=== PATIENT | female | born 1995 | race Caucasian/White ===

== ENCOUNTER 2020-08-01 10:43 | Outpatient (CLI) | payer OTHER ==
[~2020-08-01] VITALS: Ht 167.6 cm; Wt 100.0 kg
[2020-08-01 10:55] VITALS: BP 124/68
[2020-08-01] MEDS ORDERED: ACET325C5 PO (11:42)
[2020-08-01] MEDS ORDERED: ZOFR4TAB16 PO (11:42)
[2020-08-01] MEDS ORDERED: MAGN400C PO (11:42)
[2020-08-01 13:00] VITALS: BP 117/57
[2020-08-01 14:51] VITALS: BP 107/59
[2020-08-01 15:30] VITALS: BP 114/56
== END 2020-08-01 15:30 | disposition home or self-care (01) ==
LOC: M INFU 10:43
DX: O99.013 Anemia complicating pregnancy, third trimester (principal); Z3A.28 28 weeks gestation of pregnancy
CPT/HCPCS: 96365; 96366; J1756

== ENCOUNTER 2020-08-08 10:50 | Outpatient (CLI) | payer OTHER ==
[~2020-08-08] VITALS: Ht 167.6 cm; Wt 100.0 kg
[~2020-08-08 10:50] MED LIST: ACET325C5 PO; MAGN400C PO; ZOFR4TAB16 PO
[2020-08-08 11:00] VITALS: BP 120/64
[2020-08-08 12:10] VITALS: BP 121/57
[2020-08-08 12:40] VITALS: BP 105/51
== END 2020-08-08 13:00 | disposition home or self-care (01) ==
LOC: M INFU 10:50
DX: O99.019 Anemia complicating pregnancy, unspecified trimester (principal); Z3A.28 28 weeks gestation of pregnancy
CPT/HCPCS: 96365; 96366; J1756

== ENCOUNTER 2020-08-15 09:57 | Outpatient (CLI) | payer OTHER ==
[~2020-08-15] VITALS: Ht 167.6 cm; Wt 100.0 kg
[2020-08-15 10:14] VITALS: BP 109/57
[2020-08-15 11:30] VITALS: BP 109/61
[2020-08-15 12:27] VITALS: BP 101/58
== END 2020-08-15 12:00 | disposition home or self-care (01) ==
LOC: M INFU 09:57 → EDUNIT# 10:00 → M INFU 12:00
DX: O99.012 Anemia complicating pregnancy, second trimester (principal); Z3A.28 28 weeks gestation of pregnancy
CPT/HCPCS: 96365; J1756

== ENCOUNTER 2020-08-16 19:56 | Outpatient (CLI) | payer OTHER ==
[~2020-08-16] VITALS: Ht 167.6 cm; Wt 102.1 kg
[2020-08-16 20:10] VITALS: BP 108/50
[2020-08-16 20:50] VITALS: BP 131/79
--- NOTE | 2020-08-16 21:21 | IPNPDOC ---
Obstetrical Progress Note Date of Service Aug 16, 2020 Subjective 24yo at 31+3 presents for decreased FM. She said she last felt her baby move yesterday. She denied n/v/d, cp, sob, clark, visual changes, abd pain, f/c, vb, lof, contractions. Objective Vital Signs Date Time Temp Pulse Resp B/P (MAP) Pulse Ox O2 Delivery O2 Flow Rate FiO2 08/16/20 20:10 97.6 134 108/50 (69) Assessment Heart Rate (FHR): 135 Variability: Moderate Accelerations: Positive Decelerations: None Heart Rate Tracing: Category I Tocometer Contractions: Yes Frequency: regular Sterile Vaginal Examination Dilation: None Station: -3 Cervical Consistency: Firm Cervical Position: Posterior Postion/Presentation: Breech presentation Assessment and Plan Additional Comments 24yo at 31+3 with A1GDM presents for decreased FM. CAT I tracing, reactive. VS normal (tachy but had just walked in, repeat HR normal). Regular contractions on monitor, pt reported initially she could not feel them, but after 2h reported painful contractions. She has drank 2 bottles of water today, reports she normally drinks 5. She was encouraged to hydrate in triage but did not drink any water in triage, UA had +1 ketones. SVE C/T/H and unchanged on 2h and 4h repeat exam. UA/GC negative. TAUS with baby in breech position and polyhydraminos noted with GRAHAM 29.8. Suspect contractions are due to poly and dehydration but are not changing cervix so PTL is unlikley at this time. - set patient up for APFT starting at 32wk - she has GS scheduled already, will proceed with GS q4wk - plan for delivery at 39+0 to 39+6 (which is indicated anyways for her RCD) - encouraged hydration - strict routine OB and PTL return precautions - patient to follow up at next RASHEL Shea DO Aug 16, 2020 21:21
[2020-08-16 21:42] LABS: APPEARANCE, URINE CLOUDY (CLEAR); BACTERIA, URINE AUTO 1+ (NEGATIVE); BILIRUBIN, URINE AUTO NEGATIVE (NEGATIVE); BLOOD, URINE BLOOD NEGATIVE (NEGATIVE); COLOR, URINE YELLOW (YELLOW); GLUCOSE, URINE (UA) AUTO NEGATIVE (NEGATIVE); KETONE, URINE AUTO 1+ mg/dL (NEGATIVE); LEUKOCYTE ESTERASE, URINE AUTO 1+ (NEGATIVE); MUCUS, URINE SMALL (NEGATIVE); NITRITE, URINE AUTO NEGATIVE (NEGATIVE); PROTEIN, URINE AUTO 1+ mg/dL (NEGATIVE); RBC, URINE AUTO 2 /HPF (0-3); SPECIFIC GRAVITY URINE AUTO 1.018 (1.002-1.035); SQUAMOUS EPITHELIAL CELL UR AU 11 /HPF (0-6); WBC, URINE AUTO 8 /HPF (0-3)
[2020-08-16 23:32] LABS: CHLAMYDIA DNA AMPLIFICATION NEGATIVE (NEGATIVE); GC DNA AMPLIFICATION NEGATIVE (NEGATIVE)
[2020-08-17 01:03] VITALS: BP 121/69
[2020-08-18] MEDS ORDERED: PRENTAB9 PO (13:47)
== END 2020-08-17 01:10 | disposition home or self-care (01) ==
LOC: M LDO 19:56
PROVIDERS: ATTEND Obstetrics & Gynecology
DX: O36.8130 Decreased fetal movements, third trimester, not applicable or unspecified (principal); Z3A.31 31 weeks gestation of pregnancy
CPT/HCPCS: 59025; 81001; 87086; 87661; G0378; G0463

== ENCOUNTER 2020-08-18 13:18 | Outpatient (CLI) | payer OTHER ==
[~2020-08-18] VITALS: Ht 167.6 cm; Wt 101.2 kg
[2020-08-18 13:43] VITALS: BP 128/68
[2020-08-18] MEDS ORDERED: PRENTAB9 PO (13:47)
--- NOTE | 2020-08-18 18:12 | IPNPDOC ---
Text Note Date of Service The patient was seen on 08/18/20. NOTE 24yo at 31+5wks presenting for c/o ctx's. Denies LOF, DFM, or VB. She reports having ctx's for several days now and was evaluated in L&D 2 days prior for similar complaint. She has tried warm bath and drinking a gatorade. Vitals: normotensive, afebrile NST: appropriate for gestational age Jackpot: irregular ctx's. PE: GEN: well-appearing, resting comfortably in NAD HEENT: NC/AT airway patent and self-maintained CV: well-perfused RESP: no exaggerated respiratory effort appreciated ABD: soft, gravid S>D, nontender : NEFG, no VB, no pooling, no abnml vaginal discharge, SVE closed/thick/high Ext: no edema A/P: 24yo at 31+5wks presenting for c/o ctx's. Patient not in labor. Upon questioning, patient admitted to only drinking 2-3 bottles of water daily. Patient counseled on most likely etiology of ctx's being lack of hydration. Discussed importance of hydration with recommendation to drink 80-100oz daily. Counseled on FKCs, labor precautions Patient to f/u in 2 days for growth scan and in 3 days for COB appt in clinic All questions answered. VS,Fishbone, I+O VS, Fishbone, I+O Vital Signs Date Time Temp Pulse Resp B/P (MAP) Pulse Ox O2 Delivery O2 Flow Rate FiO2 08/18/20 13:43 97.4 115 20 128/68 (88) EARL LEPE DO Aug 18, 2020 18:12
== END 2020-08-18 18:10 | disposition home or self-care (01) ==
LOC: M LDO 13:18 → EEVIPCON 13:18 → M LDO 18:10
DX: O26.893 Other specified pregnancy related conditions, third trimester (principal); Z3A.31 31 weeks gestation of pregnancy
CPT/HCPCS: 59025; G0378; G0463

== ENCOUNTER 2020-10-08 05:07 | Inpatient (IN) | payer OTHER ==
[~2020-10-08] VITALS: Ht 167.6 cm; Wt 103.1 kg
[~2020-10-08 05:07] MED LIST changes: +CYCL-707 PO; +PRENTAB9 PO
[2020-10-08 05:49] LABS: HEMATOCRIT 35.7 % (36.0-47.0); HEMOGLOBIN 11.5 g/dl (12.0-15.5); MEAN CORPUSCULAR HEMOGLOBIN 26.5 pg (27.0-33.0); MEAN CORPUSCULAR HGB CONC 32.2 g/dl (32.0-36.5); MEAN CORPUSCULAR VOLUME 82.3 fl (80.0-96.0); PLATELET COUNT, AUTOMATED 333 10^3/uL (150-450); RED BLOOD COUNT 4.34 10^6/uL (4.00-5.40); WHITE BLOOD COUNT 11.6 10^3/uL (4.0-10.0)
[2020-10-08] MEDS ORDERED: MORPHINE PRES-FREE INJ 10 MG/10 ML VIAL (J2274) As Ordered ONE (06:58)
[2020-10-08] MEDS ORDERED: KETOROLAC 60MG 2ML VIAL As Ordered ONE (06:59)
[2020-10-08] MEDS ORDERED: ONDANSETRON 4MG/2ML VIAL As Ordered ONE ×2 (06:59→10:39)
[2020-10-08] MEDS ORDERED: dexameTHASONE 4 MG/ML 1ML VIAL (J1100 PER 1MG) As Ordered ONE (06:59)
[2020-10-08] MEDS ORDERED: OXYTOCIN INJ 10 UNITS/ML VIAL (J2590) As Ordered ONE (06:59)
[2020-10-08] MEDS ORDERED: OXYTOCIN 30 UNITS IN 0.9% NaCl 500ML IV BAG (J2590) As Ordered ONE (07:00)
[2020-10-08] MEDS ORDERED: ePHEDrine SULFATE 25 MG/5 ML(5MG/ML) SYRINGE As Ordered ONE (07:03)
[2020-10-08] MEDS ORDERED: PHENYLephrine 500MCG 5ML (100MCG/ML) SYRINGE As Ordered ONE (07:03)
[2020-10-08] MEDS ORDERED: METOCLOPRAMIDE INJ 10MG/2ML VIAL (J2765 PER 1) As Ordered ONE (07:16)
[2020-10-08] MEDS ORDERED: diphenhydrAMINE 50MG/ML VIAL (J1200) IV PRN (07:53)
[2020-10-08] MEDS ORDERED: NALBUPHINE HCL 10 MG/ML AMP (J2300) IV PRN ×2 (07:53→09:45)
[2020-10-08] MEDS ORDERED: ONDANSETRON 4MG/2ML VIAL IV PRN ×2 (07:53→09:45)
[2020-10-08] MEDS ORDERED: NALOXONE INJ 0.4MG/1ML VIAL (J2310 PER 1MG) IV PRN ×2 (07:53)
[2020-10-08] MEDS ORDERED: METOCLOPRAMIDE INJ 10MG/2ML VIAL (J2765 PER 1) IV PRN (07:53)
[2020-10-08] MEDS ORDERED: fentaNYL 100 MCG/2 ML INJECTION (J3010) As Ordered ONE ×2 (08:35→09:49)
[2020-10-08] MEDS ORDERED: propofoL 200 MG/20 ML VIAL As Ordered ONE (08:38)
[2020-10-08] MEDS ORDERED: ACETAMINOPHEN 1000MG 100ML IV BTL (OFIRMEV) (J0131 PER 10MG) As Ordered ONE (08:41)
[2020-10-08] MEDS ORDERED: MEPERIDINE INJ 25 MG/ML VIAL (J2175) IV PRN (09:45)
[2020-10-08] MEDS ORDERED: HYDROMORPHONE HCL 0.5 MG/ 0.5 ML SYRINGE (J1170 PER 1) IV PRN (09:45)
[2020-10-08] MEDS ORDERED: oxyCODONE 5MG TAB PO PRN (09:45)
[2020-10-08] MEDS: fentaNYL 100 MCG/2 ML INJECTION (J3010) IV PRN ×4 (09:55→10:45)
[2020-10-08 11:00] VITALS: BP 134/70
[2020-10-08 11:30] VITALS: BP 122/67
[2020-10-08 12:30] VITALS: BP 123/66
[2020-10-08 13:30] VITALS: BP 121/75
[2020-10-08 18:00] VITALS: BP 107/58
[2020-10-08 22:00] VITALS: BP 120/68
[2020-10-09 02:00] VITALS: BP 128/71
[2020-10-09 06:00] VITALS: BP 113/68
--- NOTE | 2020-10-09 06:20 | ROOPDOC ---
[facility] Report Of Operation Report of Operation DATE OF PROCEDURE: 10/08/20 PREPROCEDURE DIAGNOSES: 1. History of previous section 2. 39 weeks gestation 3. Gestational Diabetes A1 4. Obesity complicating 5. Undesired fertility POSTPROCEDURE DIAGNOSES: 1. History of previous section 2. 39 weeks gestation 3. Gestational Diabetes A1 4. Obesity complicating 5. Undesired fertility 6. Adhesions PROCEDURE: 1. Elective repeat low transverse section 2. [place] bilateral tubal ligation 3. Adhesiolysis SURGEON: Kusum Ferreira DO ASSISTANT MANAGER AIRSIDE OPERATIONS: Alivia Murillo CNM ANESTHESIA: Spinal ESTIMATED BLOOD LOSS: Approximately 700 mL. FLUIDS: 2000ml LR URINE OUTPUT: 100ml COMPLICATIONS: None FINDINGS: male in cephalic presentation with APGARS 9/9 weighing 3280g. Clear fluid on amniotomy. Normal-appearing uterus, bilateral ovaries and fallopian tubes. A large uterine window was identified extending behind the bladder. Dense adhesions of the fascia to the rectus muscle and peritoneum. PROCEDURE NOTE: The risks, benefits, indications and alternatives of the procedure were reviewed with the patient and informed consent was obtained. The patient was taken to the operating room where spinal anesthesia was obtained without difficulty and found to be adequate. She was then prepped and draped in the normal, sterile fashion in the dorsal supine position with a leftward tilt. A Pfannenstiel skin incision was then made with the scalpel and carried through to the underlying layer of fascia with the Bovie. The fascia was incised in the midline and the incision extended laterally with the Clifford scissors. The superior aspect of the fascial incision was grasped with the Lara clamps, elevated, and the underlying rectus muscles dissected off with the Bovie. Extensive adhesive disease of the fascia was encountered requiring extensive careful dissection with the Bovie and Metzenbaum scissors. Attention was then turned to the inferior aspect of this incision, which, in a similar fashion, was grasped, tented up with the Lara clamps and the rectus muscle dissected off aided with clifford scissors. Rectus muscles were then at the midline; the peritoneum identified, tented up using two Maddie clamps, and entered sharply with Metzenbaum scissors. The peritoneal incision was then extended with good visualization of the bladder. The Mobius self-retaining retractor was then inserted. The vesicouterine peritoneum was then identified, grasped with the pick-ups and entered sharply with the Metzenbaum scissors. This incision was then extended laterally and the bladder flap created digitally. A large uterine window was appreciated behind the bladder, due to this window behind the bladder, decision made to place hysterotomy superior to the bladder reflection above the window. Next, the lower uterine segment was incised in a transverse fashion with the scalpel. The uterine incision was then extended manually. The amniotic sac was artificially ruptured, productive of clear fluid. was found to be in cephalic presentation. The infants head delivered atraumatically in the ROT position through the hysterotomy without difficultly. The infant was dried on the surgical field with vigorous spontaneous cry and the cord doubly clamped and cut. The was handed off to the waiting pediatricians. A Cord blood sample was obtained. The placenta was then removed spontaneously with gently traction on the umbilical cord. The uterus was cleared of all clots and debris. The uterine incision was repaired with 0-monocryl in a running, locked fashion. A second layer of 0-monocryl was then used to embricate the hysterotomy in a horizontal fashion to achieve hemostasis. A bilateral tubal ligation was then performed per the patients request. The fallopian tubes were followed out to their fimbriated end on both sides. The left fallopian tube was grasped with a [place] clamp and the mesosalpinx incised parallel to the fallopian tube in an avascular plane using Bovie cautery. Two free ties of plain catgut were passed through the defect and placed around the fallopian tube in its proximal and distal segment and tied. The tubal segment between the two sutures was then excised using Metzenbaum scissors. Approximately 3 cm of tube was excised and sent to pathology. Excellent hemostasis and telescoping of the tubal lumen was noted. In an identical fashion, the patients right fallopian tube was then grasped with a [place] clamp. An identical procedure was then performed on this fallopian tube with a 3 cm segment excised and sent to pathology. Excellent hemostasis was noted and the tubes were returned to the abdomen. Reinspection of the hysterotomy was notable for hemostasis. The Mobius self-retaining retractor was removed from the abdomen. The fascia was reapproximated with 0-vicryl in a running fashion. The subcutaneous layer was closed with 3-0 vicryl in a interrupted fashion. The previous skin keloid scar was removed using the scalpel and Bovie. Several dermal sutures were placed for better reapproximation of the skin. The skin was then closed with 4-0 monocryl in a subcuticular fashion. The incision was then dressed with steri-strips and a pressure dressing applied. At the completion of the case, bimanual exam performed with good uterine tone and minimal vaginal bleeding. The patient tolerated the procedure well. Sponge, lap and needle counts were correct times three. The patient was taken to the recovery room in stable condition. KUSUM FERREIRA DO Oct 09, 2020 06:20
--- NOTE | 2020-10-09 06:23 | IPNPDOC ---
Progress Note Date of Service: Oct 09, 2020 Day#: 1 Progress Note SUBJECT: Ronda is a G4 now P3013 s/p ERLTCS with BTL, doing well day # 1. She has been ambulating, voiding spontaneously without issue and tolerating regular diet. Breast feeding without issue. Reports lochia is decreasing. Reports pain controlled on pain medications. OBJECTIVE: VITAL SIGNS: Within normal limits, afebrile. Alert and oriented times three. Abdomen: Fundus firm at U-2. Soft, NTTP. Incision: dressing in place c/d/i ASSESSMENT:Ronda is a G4 now P3013 s/p ERLTCS with BTL, doing well day # 1. Vitals within normal limits, afebrile, hemodynamically stable with no evidence of infection. PLAN: 1. Discharge to home tomorrow 2. Percocet and Motrin for pain. 3. Encourage breast feeding, regular diet, and ambulation. 4. Patient to remove dressing later today and may shower VS, I&O, 24H, Fishbone Vital Signs/I&O Vital Signs Date Time Temp Pulse Resp B/P (MAP) Pulse Ox O2 Delivery O2 Flow Rate FiO2 10/09/20 02:00 97.9 78 16 128/71 (90) 97 Room Air I&O- Last 24 Hours up to 6 AM 10/09/20 06:00 Intake Total 800 ml Output Total 2410 ml Balance -1610 ml EARL LEPE DO Oct 09, 2020 06:23
[2020-10-09 08:09] LABS: HEMATOCRIT 29.8 % (36.0-47.0); MEAN CORPUSCULAR HEMOGLOBIN 26.6 pg (27.0-33.0); MEAN CORPUSCULAR HGB CONC 31.5 g/dl (32.0-36.5); MEAN CORPUSCULAR VOLUME 84.4 fl (80.0-96.0); PLATELET COUNT, AUTOMATED 262 10^3/uL (150-450); RED BLOOD COUNT 3.53 10^6/uL (4.00-5.40); WHITE BLOOD COUNT 12.1 10^3/uL (4.0-10.0)
[2020-10-09 08:11] LABS: HEMOGLOBIN 9.4 g/dl (12.0-15.5)
[2020-10-09 10:00] VITALS: BP 126/78
[2020-10-09 14:00] VITALS: BP 121/65
[2020-10-09 18:00] VITALS: BP 143/68
[2020-10-09 22:00] VITALS: BP 140/83
[2020-10-10 02:00] VITALS: BP 130/72
[2020-10-10 06:00] VITALS: BP 135/72
[2020-10-10 08:00] VITALS: BP 123/67
--- NOTE | 2020-10-10 09:13 | OBDS ---
[facility] Obstetrical Discharge Sum. Obstetrical Discharge Summary Date: Oct 10, 2020 : 4 Term: 3 Abortions: 1 Livin VDRL: Non-Reactive Rh: Positive Rubella: Immune Labor 39 weeks Delivery ERLTCS with BTL Infant Sex: Male Infant Weight: pounds (7), ounces (4), grams (3280) Anesthesia: Regional Anesthesia A/P, Post Course List any complications PREPROCEDURE DIAGNOSES: 1. History of previous section 2. 39 weeks gestation 3. Gestational Diabetes A1 4. Obesity complicating 5. Undesired fertility POSTPROCEDURE DIAGNOSES: 1. History of previous section 2. 39 weeks gestation 3. Gestational Diabetes A1 4. Obesity complicating 5. Undesired fertility 6. Adhesions PROCEDURE: 1. Elective repeat low transverse section 2. [place] bilateral tubal ligation 3. Adhesiolysis FINDINGS: male infant in cephalic presentation with APGARS 9/9 weighing 3280g. Clear fluid on amniotomy. Normal-appearing uterus, bilateral ovaries and fallopian tubes. A large uterine window was identified extending behind the bl adder. Dense adhesions of the fascia to the rectus muscle and peritoneum. Condition at Discharge: Stable Discharge Instructions: Home Activity: pelvic rest and no lifting >15lbs for 6 weeks Diet: regular as tolerated Medications: @ [facility] Follow-up: 2 weeks [place] [facility] SUBJECT: Ronda is a G4 now P3013 s/p ERLTCS with BTL, doing well day #2. She has been ambulating, voiding spontaneously without issue and tolerating regular diet. Breast feeding without issue. Reports lochia is decreasing. Reports pain controlled on pain medications. OBJECTIVE: VITAL SIGNS: Within normal limits, afebrile. Alert and oriented times three. Abdomen: Fundus firm at U-2. Soft, NTTP. Incision: c/d/i with steri-strips in place ASSESSMENT: Ronda is a G4 now P3013 s/p ERLTCS with BTL, doing well day #2. Vitals within normal limits, afebrile, hemodynamically stable with no evidence of infection. PLAN: 1. Discharge to home today. 2. Percocet and Motrin for pain. 3. Encourage breast feeding, regular diet, and ambulation. 4. Patient to remove dressing later today and may shower 5. Patient counseled on strict return precautions 6. Patient to f/u in 2 weeks for incision check EARL LEPE DO Oct 09, 2020 06:46
== END 2020-10-10 14:15 | disposition home or self-care (01) | DRG 785 ==
LOC: M LDI 05:07 → M OBS 11:01
PROC: 0UB70ZZ Excision of Bilateral Fallopian Tubes, Open Approach (ICD-10-PCS; 2020-10-08)
PROC: 10D00Z1 Extraction of Products of Conception, Low, Open Approach (ICD-10-PCS; principal; 2020-10-08 07:30)
DX: O34.211 Maternal care for low transverse scar from previous cesarean delivery (principal); Z37.0 Single live birth; Z3A.39 39 weeks gestation of pregnancy; E66.9 Obesity, unspecified; O99.214 Obesity complicating childbirth; Z30.2 Encounter for sterilization; O24.419 Gestational diabetes mellitus in pregnancy, unspecified control

== ENCOUNTER 2022-07-14 13:46 | Emergency (ER) | payer OTHER ==
[~2022-07-14] VITALS: Ht 167.6 cm; Wt 100.0 kg
[2022-07-14 13:48] VITALS: BP 127/71
== END 2022-07-14 15:56 | disposition left against medical advice (07) ==
LOC: M ED 13:46
DX: Z53.21 Procedure and treatment not carried out due to patient leaving prior to being seen by health care provider (principal)

== ENCOUNTER → 2022-10-11 | Outpatient (REF) | LOC: M LAB 11:12 | PROVIDERS: ATTEND Nurse Practitioner Adult Health | DX: Z02.1 Encounter for pre-employment examination (principal) ==

== ENCOUNTER → 2022-10-18 | Outpatient (REF) | LOC: M EMP 08:10 | PROVIDERS: ATTEND Family Medicine | DX: Z11.52 Encounter for screening for COVID-19 (principal) ==

== ENCOUNTER → 2022-10-25 | Outpatient (REF) | LOC: M EMP 09:25 | PROVIDERS: ATTEND Family Medicine | DX: Z20.822 Contact with and (suspected) exposure to COVID-19 (principal) ==

== ENCOUNTER → 2022-10-28 | Outpatient (REF) | LOC: M EMP 11:35 | PROVIDERS: ATTEND Family Medicine | DX: Z11.52 Encounter for screening for COVID-19 (principal) ==

== ENCOUNTER → 2022-11-01 | Outpatient (REF) ==
[2022-11-01 11:07] LABS: RSV AMPLIFICATION NEGATIVE (NEGATIVE)
== END ==
LOC: M EMP 07:44
PROVIDERS: ATTEND Family Medicine
DX: Z11.52 Encounter for screening for COVID-19 (principal)

== ENCOUNTER → 2022-11-08 | Outpatient (REF) | LOC: M EMP 10:58 | PROVIDERS: ATTEND Family Medicine | DX: Z20.822 Contact with and (suspected) exposure to COVID-19 (principal) ==

== ENCOUNTER → 2022-11-15 | Outpatient (REF) | LOC: M EMP 08:04 | PROVIDERS: ATTEND Family Medicine | DX: Z11.52 Encounter for screening for COVID-19 (principal) ==

== ENCOUNTER → 2022-11-23 | Outpatient (REF) | LOC: M EMP 09:00 | PROVIDERS: ATTEND Family Medicine | DX: Z20.822 Contact with and (suspected) exposure to COVID-19 (principal) ==

== ENCOUNTER → 2022-11-29 | Outpatient (REF) | LOC: M EMP 08:35 | PROVIDERS: ATTEND Family Medicine | DX: Z11.52 Encounter for screening for COVID-19 (principal) ==